=== PATIENT | male | born 1980 ===

== ENCOUNTER 2018-05-15 19:59 | Emergency (ER) | payer OTHER ==
[2018-05-15 20:08] VITALS: BP 137/83; PULSE 109; RESP 20; TEMP 102.8; O2SAT 98
--- NOTE | 2018-05-15 20:35 | C.PDOC ---
History Of Present Illness 36 y/o male presents to the ED complaining of 3 days of sore throat, nasal congestion, cough, fever, and chills. He denies any chest pain, SOB, abdominal pain, nausea, vomiting, or diarrhea. 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 Reports taking symptomatic medication for relief of fever. Patient describes having productive cough throughout the day. Time Seen by Provider: 05/15/18 20:15 Chief Complaint (Nursing): ENT Problem History Per: Patient History/Exam Limitations: no limitations Onset/Duration Of Symptoms: Days (x 3) Current Symptoms Are (Timing): Still Present Location Of Pain: Throat Associated Symptoms: Fever, Chills, Cough, Nasal Congestion Past Medical History Reviewed: Historical Data, Nursing Documentation, Vital Signs Vital Signs: Last Vital Signs Temp 102.8 F H 05/15/18 20:03 Pulse 109 H 05/15/18 20:03 Resp 20 05/15/18 20:03 BP 137/83 05/15/18 20:03 Pulse Ox 98 05/15/18 20:03 - Medical History PMH: No Chronic Diseases Surgical History: No Surg Hx Family History: States: No Known Family Hx - Social History Hx Tobacco Use: No Hx Alcohol Use: No Hx Substance Use: No - Immunization History Hx Tetanus Toxoid Vaccination: Yes Hx Influenza Vaccination: No Hx Pneumococcal Vaccination: No Review Of Systems Constitutional: Positive for: Fever, Chills. Negative for: Weakness Eyes: Negative for: Redness, Other (scleral icterus) ENT: Positive for: Nose Congestion. Negative for: Mouth Swelling Cardiovascular: Negative for: Chest Pain Respiratory: Positive for: Cough, Sputum. Negative for: Shortness of Breath, Wheezing Gastrointestinal: Negative for: Nausea, Vomiting, Abdominal Pain, Diarrhea Genitourinary: Negative for: Dysuria, Hematuria Musculoskeletal: Negative for: Back Pain Skin: Negative for: Rash Neurological: Negative for: Weakness, Numbness, Dizziness Physical Exam - Physical Exam Appears: Non-toxic, No Acute Distress Skin: Normal Color, Warm, No Rash Head: Atraumatic, Normacephalic Eye(s): bilateral: Normal Inspection (no scleral icterus), PERRL, EOMI Ear(s): Bilateral: Normal (no drainage) Nose: Discharge (bilateral turbinate enlargement with nasal congestion) Oral Mucosa: Moist Throat: Erythema (+ injection to pharynx), No Exudate, Other (No tonsillar swelling) Neck: Normal ROM, Supple Lymphatic: No Adenopathy (no cervical or submandibular node enlargement) Chest: Symmetrical Cardiovascular: Rhythm Regular, No Murmur Respiratory: No Rales, No Rhonchi, No Wheezing, Other (Lungs clear bilaterally, moving air well) Gastrointestinal/Abdominal: Soft, No Tenderness, No Distention Back: Other (Ambulating with steady upright gait) Extremity: Bilateral: Atraumatic, Normal ROM Pulses: Left Radial: Normal, Right Radial: Normal Neurological/Psych: Oriented x3, Normal Cranial Nerves (grossly intact) ED Course And Treatment O2 Sat by Pulse Oximetry: 98 (RA) Pulse Ox Interpretation: Normal Medical Decision Making Medical Decision Making: Impression: Flu-like symptoms Plan: - Flu swab - Rapid strep test - Chest x-ray - Tylenol 975 mg PO Progress: Negative flu, negative strep. Disposition Counseled Patient/Family Regarding: Studies Performed, Diagnosis, Need For Followup - Disposition Disposition: HOME/ ROUTINE Disposition Time: 22:00 Condition: IMPROVED Additional Instructions: PENELOPE ANTONY, thank you for letting us take care of you today. Your provider was Bashir Alonso MD and you were treated for viral illness. The emergency medical care you received today was directed at your acute symptoms. If you were prescribed any medication, please fill it and take as directed. It may take several days for your symptoms to resolve. Return to the Emergency Department if your symptoms worsen, do not improve, or if you have any other problems. Please contact your doctor or call one of the physicians/clinics you have been referred to that are listed on the Patient Visit Information form that is included in your discharge packet. Bring any paperwork you were given at discharge with you along with any medications you are taking to your follow up visit. Our treatment cannot replace ongoing medical care by a primary care provider outside of the emergency department. Thank you for allowing the [facility] team to be part of your care today. If you had an X-Ray or CT scan: A Radiologist will review the ED reading if any change in treatment is needed we will contact you. Instructions: Viral Syndrome (DC) Forms: [email or web address] ([place]) - Clinical Impression Clinical Impression: Viral respiratory illness - PA / RN TRAVELING / Resident Statement MD/DO has reviewed & agrees with the documentation as recorded. - Scribe Statement The provider has reviewed the documentation as recorded by the Milagrosibaleyda Padilla All medical record entries made by the Sarina were at my direction and per sonally dictated by me. I have reviewed the chart and agree that the record accurately reflects my personal performance of the history, physical exam, medical decision making, and the department course for this patient. I have also personally directed, reviewed, and agree with the discharge instructions and disposition.
[2018-05-15 20:56] LABS: INFLUENZA A B NEGATIVE FOR FLU A/B (NEGATIVE)
--- NOTE | 2018-05-16 09:20 | RAD ---
Date of service: 05/15/2018 HISTORY: pneumonia COMPARISON: No prior. TECHNIQUE: Chest PA and lateral FINDINGS: LUNGS: No consolidation. PLEURA: No significant pleural effusion identified. No pneumothorax apparent. CARDIOVASCULAR: There is absence of aortic atherosclerotic calcification on x-ray. Normal cardiac size. Bronchovascular markings slightly increased--a mild pulmonary venous congestion and/or bronchitis or viral pneumonitis are some considerations. A bronchitis or viral pneumonitis is favored. Left hilum borderline prominent. OSSEOUS STRUCTURES: No significant abnormalities. VISUALIZED UPPER ABDOMEN: Normal. OTHER FINDINGS: None. IMPRESSION: No consolidation seen. Perihilar bronchitis/viral pneumonitis probable. Possible left perihilar calcified node granuloma. Left hilum borderline prominent. Comments: Study marked for PA review .
== END 2018-05-15 22:00 | disposition home or self-care (01) ==
LOC: C.ER 19:59
DX: J98.8 Other specified respiratory disorders (principal)